=== PATIENT | female | born 1950 | race Caucasian/White ===

== ENCOUNTER → 2017-10-23 12:44 | Outpatient (CLI) | payer MEDICARE, OTHER ==
--- NOTE | ~2017-10-23 | EC ---
PATIENT:IVANNA WATT DATE OF SERVICE: 10/23/17 SEX: F MEDICAL RECORD: [id number] DATE OF : 46 LOCATION:[facility] AGE OF PATIENT: 67 ADMISSION DATE: 10/23/17 REFERRING PHYSICIAN: INTERPRETING PHYSICIAN: ZACARIAS PEREZ MD ECHOCARDIOGRAM REPORT ECHO CHARGES 4 ECHO COMPLETE Date: 10/23 CLINICAL DIAGNOSIS: HTN, MURMUR,DYSPENA,CP,FATIGUE ECHOCARDIOGRAPHIC MEASUREMENTS (adult normal given) AC root (d.<3.7cm) 2.5 cm LV Septum d (<1.2 cm> 0.7 cm Valve Excursion 1.0 cm LV Septum (systole) 1.1 cm Left Atria (s.<4.0cm> 2.8 cm LVPW d(<1.2cm) 0.9 cm RV (d.<2.3cm) 3.5 cm LVPW (sytole) 1.2 cm LV diastole(<5.6CM) 403 cm MV E-F(>70mm/sec) cm LV systole 3.7 cm LVOT Diameter 1.9 cm MV exc.(>10mm) cm Est.ejection fraction (50-75%) % DOPPLER: LVIT cm/sec A 83 cm/sec E 85 cm/sec LA cm/sec RVSP 35 mmHg LVOT 96 cm/sec AOP1/2T m/s Asc. Ao 185 cm/sec RVOT 50 cm/sec RA cm/sec PA cm/sec AV Gradient Peak 13.7 mmHg AV Mean 6.1 mmHg AV Area 1.6 cm MV Gradient Peak 2.9 mmHg MV Mean 1.4 mmHg MV Area cm COMMENTS: Supply Technician: Brazer Induction: Reyna Perez TAPE# PACS Pericardial Effusion N DATE OF SERVICE: INDICATION: Transthoracic echocardiogram. FINDINGS: 1. Left ventricle has hyperdynamic left ventricular function, ejection fraction is 65% to 70%. 2. The left atrium is normal. 3. The aortic valve is normal with trace to mild aortic insufficiency. 4. Mitral valve has mild mitral regurgitation. ECHOCARDIOGRAM REPORT [id number] IVANNA WATT 5. Tricuspid valve has mild tricuspid regurgitation. RVSP of 35 mmHg. 6. The right ventricle and right atrium are mildly dilated. CONCLUSIONS: The patient has evidence of mild pulmonary hypertension, otherwise normal echocardiogram for stated age. TRANSINT:[id number] Voice Confirmation ID: [id number] DOCUMENT ID: [id number] ZACARIAS PEREZ MD at 1127 CC: [id number] DICTATION DATE: 10/24/17 0758 MEDICAL MANAGEMENT SPECIALIST: 10/24/17 0839 DEP CLI 10/23/17 [place] [id number] [place] [id number]
[~2017-10-23 12:44] MED LIST: ASPIRIN81 MG PO; CORDARONE200 MG PO; K-DUR20 MEQ PO; LASIX20 MG PO; LEVOTHYROXINE100 MCG PO; LOPRESSOR25 MG PO; MAGNESIUM OXID250 MG PO
[2017-11-16 11:07] VITALS: BMI 30.2
== END | disposition home or self-care (01) ==
LOC: D.ECHO 12:44
DX: I10 Essential (primary) hypertension (principal); I20.9 Angina pectoris, unspecified; R07.9 Chest pain, unspecified; R53.83 Other fatigue; R06.02 Shortness of breath; R01.1 Cardiac murmur, unspecified; E87.5 Hyperkalemia; Z78.9 Other specified health status

== ENCOUNTER 2017-11-09 07:12 | Outpatient (CLI) | payer MEDICARE, OTHER ==
[~2017-11-09] VITALS: Ht 160 cm; Wt 73.6 kg
--- NOTE | ~2017-11-09 | HEMODYNAMI ---
PATIENT:IVANNA WATT MEDICAL RECORD: [id number] : 46 LOCATION:[facility] ADMISSION DATE: 11/09/17 Generatedon:11/09/201710:01 Patient name: IVANNA WATT Patient #: [id number] SSN: : 1950 Date of study: 11/09/2017 Page: Of Hemodynamic Procedure Report Patient Data Patient Demographics Procedure consent was obtained First Name: IVANNA Gender: Female Last Name: SHUKRI : 1950 Middle Initial: A Age: 67 year(s) Patient #: [id number] Race: Unknown Additional ID: [id number] Contact details [address]: [address] [place] [address] [place] State: [place] City: [place] Zip code: [address] Past Medical History Allergies Allergen Reaction Date Comments Reported Codeine 11/09/2017 Shellfish 11/09/2017 Statins 11/09/2017 Admission Admission Data Admission Date: 11/09/2017 Admission Time: 7:12 Admit Source: Other Lab Results Lab Result Date: 11/09/2017 Lab Result Time: 0:00 Biochemistry Name Units Result Min Max BUN mg/dl 11 --(-*--)-- 7 18 Creatinine mg/dl 0.9 --(-*--)-- 0.6 1.3 CBC Name Units Result Min Max Hemoglobin g/dl 14 --(*---)-- 13.5 17.5 Procedure Procedure Types Cath Procedure Diagnostic Procedure LHC LHC w/Coronaries Procedure Description Procedure Date Procedure Date: 11/09/2017 Procedure Start Time: 9:35 Procedure End Time: 9:58 Procedure Staff Name Function Patricia Garg MD Performing Physician Ronald Rogers RN Nurse Ken Grover RN Cost Consultant Procedure Data Cath Procedure Fluoroscopy Diagnostic fluoroscopy Total fluoroscopy Time: 8.1 time: 8.1 min min Diagnostic fluoroscopy Total fluoroscopy dose: 455 dose: 455 mGy mGy Contrast Material Contrast Material Type Amount (ml) Isovue 300 60 Entry Location Entry Primary Successful Side Size Upsize Upsize Entry Closure Betancur ccessful Closure Location (Fr) 1 (Fr) 2 (Fr) Remarks Device Remarks Femoral Right 6 Fr Mechanical artery Short Compression Diagnostic catheters Device Type Used For End Catheter Placement DIAGNOSTIC [place] 110cm 5 LV Angiography Fr catheter ([id number]) Procedure Complications No complications Procedure Medications Medication Administration Route Dosage 0.9% NaCl I.V. 100 ml/hr Oxygen etCO2 Nasal cannula 2 l/min Heparin Flush Bag added to field 2 bags (1000units/500ml NS) Lidocaine 2% added to field 20 Radial Cocktail added to field 1 syringe (Verapomil 2mg/Nitro 400mcg/Heparin 1500units) Versed I.V. 2 mg Fentanyl I.V. 50 mcg Radial Cocktail I.A. 1 syringe (Verapomil 2mg/Nitro 400mcg/Heparin 1500units) Hemodynamics Rest HGB: 14 (g/dl) Heart Rate: 90 (bpm) Pressure Samples Time Site Value (mmHg) Purpose Heart Use Rate(bpm) 9:53 LV 184/-14,13 EDP 98 Gradients Valve Time Site Site Mean SEP/DFP Peak To Heart Use 1 2 (mmHg) (sec/min) Peak Rate (mmHg) (bpm) Aortic 9:53 LV AO 92 Snapshots Pre Cath Intra NCS Post Cath Vital Signs Time Heart Resp SPO2 etCO2 NIBP (mmHg) Rhythm Pain Sedation Rate (ipm) (%) (mmHg) Status Level (bpm) 9:30:55 84 23 100 30.8 165/85(132) NSR 0 (11) 10(A) , No pain 9:35:43 93 15 99 10.5 151/81(123) NSR 0 (11) 10(A) , No pain 9:40:26 90 18 97 15.8 143/77(108) NSR 0 (11) 10(A) , No pain 9:45:07 97 18 96 15 136/83(113) NSR 0 (11) 9(A) , No pain 9:49:47 94 16 97 14.3 147/90(123) NSR 0 (11) 9(A) , No pain 9:54:32 93 16 98 30.8 144/81(117) NSR 0 (11) 9(A) , No pain Medications Time Medication Route Dose Verified Delivered Reason Notes Effectiveness by by 9:31:45 0.9% NaCl I.V. 100 Ronald Ronald Per ml/hr Sue Rogers physician RN RN 9:31:54 Oxygen etCO2 2 l/min Ronald Ronald Per Nasal Sue Rogers physician cannula RN RN 9:32:05 Heparin Flush added 2 bags Ronald Ronald used for Bag to Lorigan Sue procedure (1000units/500ml field RN RN NS) 9:32:15 Lidocaine 2% added 20ml Ronald Ronald for local to vial Lorigan Lorshiela anesthetic field RN RN 9:33:45 Radial Cocktail added 1 Ronald Ronald used for (Verapomil to syringe Lorigan Debiigan procedure 2mg/Nitro field RN RN 400mcg/Hepari 9:33:57 Versed I.V. 2 mg Ronald Ronald for sedation Sue Rogers RN RN 9:34:06 Fentanyl I.V. 50 mcg Ronald Ronald for sedation Sue Rogers RN RN 9:40:40 Radial Cocktail I.A. 1 Ronald Reed for (Verapomil syringe Sue Garg MD vasodilation 2mg/Nitro RN 400mcg/Hepari Procedure Log Time Note 9:18:30 Admit Source: Other 9:19:03 jess knox rt monitor 9:19:06 Diagnostic Cath status Elective 9:19:08 Ronald Rogers RN sent for patient. Start room use. 9:19:10 Time tracking: Regular hours (M-F 7:00 - 5:00) 9:19:15 Plan of Care:Hemodynamics will remain stable., Cardiac rhythm will remain stable., Comfort level will be maintained., Respiratory function will remain adequate., Patient/ family verbilizes understanding of procedure., Procedure tolerated without complication., Recovers from procedure without complications.. 9:19:20 Patient received from Pre/Post Procedure Room to CCL 1 Alert and oriented. Tansferred to table in Supine position. 9:19:22 Correct patient and procedure confirmed by team. 9:19:22 Warm blankets applied, and tiesha hugger turned on for patient comfort. 9:19:24 ECG and BP/O2 sat monitors applied to patient. 9:19:24 Signed procedure consent form obtained from patient. 9:29:53 Vital chart was started 9:29:53 Baseline sample Acquired. 9:29:58 Rhythm: sinus rhythm 9:30:00 Full Disclosure recording started 9:30:52 H&P Date Dictated: 11/01/2017 Within 30 days and on chart.. 9:30:55 Pre-op teaching completed and patient verbalized understanding. 9:30:55 Pre-procedure instructions explained to patient. 9:30:57 Family in waiting room. 9:30:59 Patient NPO since Midnight. 9:31:07 Patient allergic to Codeine 9:31:14 Patient allergic to Shellfish 9:31:20 Patient allergic to Statins 9:31:22 Is the patient allergic to Iodine/contrast media? Yes. 9:31:26 Was the patient premedicated? Yes 9:31:29 Is patient on blood thinner?Yes 9:31:32 ACC The patient was administered the following blood thiners within the last 24 hours: ACCPlavix 9:31:34 Patient diabetic? No. 9:31:36 ----Pre-sedation anethsthesia assessment.---- 9:31:39 Previous problem with sedation/anesthesia? No ? 9:31:41 Snore? No 9:31:42 Sleep apnea? No 9:31:44 Deviated septum? No 9:31:45 0.9% NaCl 100 ml/hr I.V. was administered by Ronald Rogers RN; Per physician; 9:31:46 Opens mouth fully? Yes 9:31:48 Sticks out tongue? Yes 9:31:51 Airway obstruction? No ? 9:31:53 Dentures? No ? 9:31:54 Oxygen 2 l/min etCO2 Nasal cannula was administered by Ronald Rogers RN; Per physician; 9:31:58 Pre procedure: right dorsailis pedis pulse 1+ Palpable, but thready & weak; easily obliterated 9:32:01 Modified Patricio's test Ulnar > 7 seconds. 9:32:05 Patient pain scale 0/10 ?. 9:32:05 Heparin Flush Bag (1000units/500ml NS) 2 bags added to field was administered by Ronald Rogers RN; used for procedure; 9:32:08 IV patent on arrival in left hand with 0.9% NaCl at 10ml/hr. 9:32:15 Lidocaine 2% 20ml vial added to field was administered by Ronald Rogers RN; for local anesthetic; 9:33:20 Right Radial & Right Groin area was prepped with chlora-prep and draped in sterile fashion 9:33:22 Sharps counted by scrub and verified by R.N. 9:33:22 Alarms reviewed by RAnalia N. 9:33:23 --------ALL STOP TIME OUT------ 9:33:24 Final Timeout: patient, procedure, and site verified with staff and physician. All members of the team are in agreement. 9:33:25 Final Timeout: patient, procedure, and site verified with staff and physician. All members of the team are in agreement. 9:33:30 Right Radial & Right Groin site verified by team. 9:33:34 Physical assessment completed. ASA score P 2 - A patient with mild systemic disease as per Reed Garg MD. 9:33:38 Sedation plan: IV Moderate Sedation Medication:Versed, Fentanyl 9:33:45 Radial Cocktail (Verapomil 2mg/Nitro 400mcg/Heparin 1500units) 1 syringe added to field was administered by Ronald Rogers RN; used for procedure; 9:33:57 Versed 2 mg I.V. was administered by Ronald Rogers RN; for sedation; 9:33:59 Use device set Radial Dx or PCI 9:34:00 ACIST Syringe (65064) opened to sterile field. 9:34:01 Medline Cath Pack ([id number]) opened to sterile field. 9:34:02 Bag Decanter (2002) opened to sterile field. 9:34:03 DIAGNOSTIC WIRE .035 260cm J wire (616724) opened to sterile field. 9:34:04 ACIST Manifold (74477) opened to sterile field. 9:34:04 ACIST Hand Control (72150) opened to sterile field. 9:34:05 Tegaderm 4 x 4 (1626W) opened to sterile field. 9:34:06 MBrace Wrist Support ([id number]) opened to sterile field. 9:34:06 Fentanyl 50 mcg I.V. was administered by Ronald Rogers RN; for sedation; 9:34:13 NEEDLE Cook 21G 4cm Radial (X23225) opened to sterile field. 9:34:20 Procedure started. 9:35:15 Local anesthetic to right radial artery with Lidocaine 2% by Reed Garg MD.INITIAL ACCESS ONLY 9:35:27 A 6 Fr Short sheath was inserted into the Right Femoral artery 9:39:57 Zero performed for pressure channel P1 9:40:10 A DIAGNOSTIC [place] 110cm 5 Fr catheter (303386) was advanced over the wire and used for LV Angiography. 9:40:35 GLIDE WIRE ANGLE 260cm ([id number]) opened to sterile field. 9:40:40 Radial Cocktail (Verapomil 2mg/Nitro 400mcg/Heparin 1500units) 1 syringe I.A. was administered by Reed Garg MD; for vasodilation; 9:41:30 glidewire used for tiger then exchanged for a wholey wire 9:42:02 FIELDER XT 190cm guidewire ([id number]) opened to sterile field. 9:43:17 fielder wire used for tiger 9:44:51 Lab Result : Hemoglobin 14 g/dl 9:44:51 Lab Result : Creatinine 0.9 mg/dl 9:44:51 Lab Result : BUN 11 mg/dl 9:46:25 LCA angiography performed. 9:49:18 RCA angiography performed. 9:53:54 LV gram done using SON 9:53:56 LV angiography performed. 9:53:57 LV hemodynamics recorded. 9:54:00 Catheter removed. 9:54:23 Sheath removed intact; hemostasis achieved with Mechanical Compression to the Right Femoral artery. 9:54:29 TR BAND Standard ([id number]) opened to sterile field. 9:54:37 Procedure ended.(Physican Out) 9:54:52 Fluoroscopy time 08.10 minutes. 9:54:57 Fluoroscopy dose: 455 mGy 9:54:57 Flurop Dose total: 455 9:55:02 Contrast amount:Isovue 300 60ml. 9:55:11 Sharps counted by scrub and verified by R.N. 9:55:32 TR band inflated with 13cc of air. 9:55:45 Post right radial artery:stable 9:55:46 Post Procedure Pulses reassessed and unchanged 9:55:50 Post procedure: right dorsailis pedis pulse 1+ Palpable, but thready & weak; easily obliterated. 9:55:54 Post procedure rhythm: sinus rhythm 9:55:56 Post procedure instruction explained to patient.Patient verbalizes understanding. 9:55:59 Procedure and supply charges have been captured, reviewed, submitted and are correct. 9:56:39 Procedure Complication : No complications 9:57:55 Vital chart was stopped 9:57:56 See physician's report for complete and final results. 9:57:58 Report given to Pre/Post Procedure Room. 9:58:22 Patient transfered to Pre/Post Procedure Room with Stretcher. 9:58:24 Full Disclosure recording stopped 9:58:24 Procedure ended. 9:58:28 End room use (Document Last) Device Usage Item Name Manufacture Quantity Catalog Hospital Part Current Minimal Lot# / Number Charge Number Stock Stock Serial# Code ACIST Acist 1 44948 022760 331720 [id number] 20 Syringe Medical (31868) Systems Inc Medline Cardinal 1 [id number] 615285 86889 032687 5 Cath PISTIS Consult ([id number]) Bag Microtek 1 2001S 816910 22151 722653 5 Decanter Medical Inc. () DIAGNOSTIC St Hari 1 019898 771630 101555 338512 30 WIRE .035 260cm J wire (967128) ACIST Hand Acist 1 43687 768889 566890 365062 5 Control Medical (71948) Systems Inc ACIST Acist 1 05668 211475 146645 723731 5 Manifold Medical (81586) Systems Inc Tegaderm 4 3M 1 1626W 143224 619231 177648 5 x 4 (1626W) MBrace Advanced 1 140-0250-00 134159 42461 837861 5 Wrist Vascular Support Dynamics ([id number]) NEEDLE Cook Cook Medical 1 Q35049 626735 150466 337577 5 21G 4cm Radial (E64569) DIAGNOSTIC Terumo 1 40-1893 751590 840671 428977 5 [place] 110cm 5 Fr catheter (190537) GLIDE WIRE Terumo 1 BY0458 508632 742742 067485 5 ANGLE 260cm (UT0525) FIELDER XT Milner 1 [id number] 051305 14119 089233 5 190cm Vascular guidewire ([id number]) TR BAND Terumo 1 [id number] 131549 364047 800161 40 Standard ([id number]) Signature Audit [place] Stage Time Signature Unsigned Intra-Procedure 11/09/2017 Ken Grover 10:01:44 AM [place] [id number] [place] [address]
--- NOTE | ~2017-11-09 | OP ---
PATIENT NAME: IVANNA WATT MEDICAL RECORD: [id number] :46 LOCATION:D.CAT ADMISSION DATE: SURGEON: ZACARIAS PEREZ MD DATE OF OPERATION: 11/09/2017 PROCEDURES: Left heart catheterization, LV gram, coronary angiogram. MILL BEAM FITTER: Zacarias ePrez MD PROCEDURE IN DETAIL: The patient was brought into the cardiac catheterization lab in a stable condition. The right wrist was sterilely prepped and draped. The patient had a 6-Palauan sheath placed into the right radial artery using modified Seldinger technique in a retrograde fashion. We were then able to take a diagnostic catheter and intubate the left main coronary artery, the right coronary artery and the left ventricular cavity respectively for complete left heart catheterization. FINDINGS: 1. Left main has calcified plaquing. 2. The LAD has a 95% mid stenosis after the takeoff of the dominant diagonal vessel and then in segmental fashion, there is a 90% stenosis. There does not appear to be any collateralization in that area. The diagonal itself has an ostial 80% stenosis. 3. The circumflex is a nondominant vessel, yielding a terminal obtuse marginal branch. The inferior branch is shown to have a 90% stenosis in the proximal vessel. 4. The RCA is a dominant vessel by distribution and has diffuse 60% to 70% stenosis. HEMODYNAMICS: Left ventricular ejection fraction is 75%. End-diastolic pressure is normal. There is no significant mitral regurgitation. There is no gradient across the aortic valve. IMPRESSION: Severe multivessel coronary artery disease in a patient with preserved LV systolic function. RECOMMENDATIONS: To consider coronary artery bypass grafting versus multivessel stenting. TRANSINT:[id number] Voice Confirmation ID: [id number] DOCUMENT ID: [id number] ZACARIAS PEREZ MD at 1144 CC: [id number] DICTATION DATE: 11/09/17 0959 HOUSE OFFICER: 11/09/17 1136 REG [place] [id number] [place] [id number]
[2017-11-09] MEDS ORDERED: LEVOTHYROXINE100 MCG PO (07:57)
[2017-11-09] MEDS ORDERED: ASPIRIN81 MG PO (07:57)
[2017-11-09] MEDS ORDERED: MAGNESIUM OXID250 MG PO (07:58)
[2017-11-09 08:23] VITALS: BP 133/68; Ht 160 cm; Wt 73.6 kg
[2017-11-09 08:38] LABS: BASOPHILS 1.1 % (0-2); EOSINOPHILS 2.8 % (0-7); IMMATURE GRANULOCYTES 0.2 % (0-5); LYMPHOCYTES 32.5 % (15-50); MCH 30.2 pg (26.0-34.0); MCHC 34.1 g/dL (31.0-37.0); MCV 88.4 fL (80.0-100.0); MEAN PLATELET VOLUME 9.3 fL (7.4-10.4); MONOCYTES 8.7 % (2-11); NEUTROPHILS 54.7 % (40-80); PLATELET COUNT 246 10x3/uL (130-400); RBC 4.64 10x6/uL (4.00-5.40); RDW 12.9 % (11.5-14.5); WBC 4.6 10x3/uL (4.8-10.8)
[2017-11-09 08:49] LABS: ANION GAP 9.9 mmol/L (8-16); CALCIUM 8.7 mg/dL (8.5-10.1); CARBON DIOXIDE 30.4 mmol/L (21.0-32.0); CREATININE - SERUM 0.9 mg/dL (0.6-1.3); POTASSIUM - SERUM 4.3 mmol/L (3.5-5.1)
== END 2017-11-09 13:30 | disposition home or self-care (01) ==
LOC: D.CATH 07:12
PROVIDERS: Internal Medicine Cardiovascular Disease
DX: I25.10 Atherosclerotic heart disease of native coronary artery without angina pectoris (principal)

== ENCOUNTER 2017-11-13 13:30 | Inpatient (IN) | payer MEDICARE, OTHER ==
[~2017-11-13] VITALS: Ht 160 cm; Wt 76.1 kg
--- NOTE | ~2017-11-13 | OP ---
PATIENT NAME: IVANNA WATT MEDICAL RECORD: [id number] :46 LOCATION:[facility] ADMISSION DATE:11/15/17 SURGEON: DIONTE ANTUNEZ MD DATE OF OPERATION: 11/15/2017 SURGEON: Dionte Antunez MD DRILL PRESS OPERATOR NUMERICAL CONTROL: Alma Ibarra MD and DANUTA Cerda OPERATION PERFORMED: Coronary artery bypass graft times 4 (left internal mammary artery to LAD, reverse saphenous vein graft from aorta to first diagonal, aorta to obtuse marginal, distal branch, and aorta to right coronary artery). PREOPERATIVE DIAGNOSES: Coronary artery disease with unstable angina. POSTOPERATIVE DIAGNOSES: Coronary artery disease with unstable angina. ANESTHESIA: General endotracheal anesthesia. ESTIMATED BLOOD LOSS: Total cardiopulmonary bypass with Cell Saver re-transfusion, 1 packed red blood cell, 1 platelet. COMPLICATIONS: None. SPECIMENS: None. CONDITION: Stable. DISPOSITION: CV ICU. OPERATIVE FINDINGS: 1. Transesophageal echocardiography revealed normal contractility. No valvular stenosis or incompetence. 2. Greater saphenous vein at the knee was thin and this portion was used for the right coronary bypass graft, in the mid thigh was a dual system with the more superficial segment being varicose but enough vein for use of the diagonal and it was a larger caliber piece of vein. The best piece was used for the obtuse marginal graft. 3. Good quality internal mammary artery to LAD was a 2.0-mm vessel. 4. First diagonal 1.5 mm vessel with severe disease. 5. Obtuse marginal, distal branch 1.5 mm vessel. 6. The posterior descending artery was small, about 1.25 mm of the distal anastomosis was in the right coronary artery, which was a 1.5 mm vessel with severe disease. 7. Separation from cardiopulmonary bypass without vasopressors. OPERATIVE INDICATION: Coronary artery disease and unstable angina. DESCRIPTION OF PROCEDURE: The patient was brought to the operating suite. General anesthesia was obtained, the patient was prepped and draped. Greater saphenous vein was harvested in the right leg using bridging incisions. Side branches were clipped. The vein was ligated proximally and distally and removed. It was made hemostatic. Later the leg was closed in 2 layers including drains were placed. OPERATIVE REPORT [id number] IVANNA WATT A median sternotomy incision was made. Subcutaneous tissue was divided by electrocautery. The sternum was divided with a saw. The left hemisternum was elevated. Left pleural cavity was entered. Left internal mammary vein was taken as a pedicle graft. Sternal retractor was placed. Pericardium was opened. Heparin was given. The aortic cannula was placed. Dual stage venous cannula was placed. Internal mammary was clipped distally and made ready for anastomosis. The patient was placed on cardiopulmonary bypass after activating clotting time was appropriately elevated. Sites for distal anastomoses were selected. Antegrade cardioplegia vent needle was placed. The patient was cooled. Crossclamp was placed. Cardioplegia was given antegrade and this was repeated at 15-minute intervals including down the completed vein grafts. Distal anastomoses were performed in standard technique. Proximal anastomosis with a single cross-clamp technique. The aortic root de-aired with a clamp off and anastomoses tied down. The grafts were de-aired. The patient resumed a spontaneous rhythm, fully rewarmed, weaned from cardiopulmonary bypass and was stable. The patient was decannulated. Aortic cannulation site was oversewn with a Prolene suture with pledgets. Protamine was given. A thorough irrigation was undertaken. All grafts lay appropriately and were hemostatic. Drains were placed in the mediastinum. Single ventricular pacing wires were placed. Pericardial fat was loosely reapproximated. Left chest was evacuated and irrigated. The internal mammary harvest site was inspected and there was no bleeding. The sternum was closed with wires. Fascia was closed. Subcutaneous tissue was closed. Skin was closed. Dermabond was placed. The needle and sponge counts were reported as correct and the patient was taken to the ICU in stable condition. TRANSINT:[id number] Voice Confirmation ID: [id number] DOCUMENT ID: [id number] DIONTE ANTUNEZ MD at 0747 CC: ZACARIAS PEREZ MD [id number] DICTATION DATE: 11/15/17 1316 HAND BOX COVERER: 11/15/17 1337 ADM IN [place] [id number] [place] [id number]
--- NOTE | ~2017-11-13 | TEE ---
PATIENT:IVANNA WATT MEDICAL RECORD: [id number] LOCATION:[place] [id number] AGE OF PATIENT: 67 ADMISSION DATE: 11/15/17 SEX: F REFERRING PHYSICIAN: INTERPRETING PHYSICIAN: ZACARIAS PEREZ MD TRANSESOPHAGEAL ECHOCARDIOGRAM Date: 11/15/17 JOSIE CHARGE Y INDICATIONS: CABG PREMEDICATIONS: PATIENT'S RESPONSE PROCEDURE DOPPLER MEASUREMENTS: LVIT LA PA RA LVOT RVOT Asc. Ao AV Gradient Peak AV Mean AV Area MV Gradient Peak MV Mean MV Area INTERPRETATION: LVD: 3.3 LVS: 2.1 Doppler: 2-D: COLOR FLOW DOPPLER NORMAL SALINE STUDY: MISCELLANOUS: DIAGNOSIS: PLAN: Academic Hospitalist:4 Dr. Perez Billing Representative: Garfield POWELL COMMENTS: DATE OF SERVICE: 11/17/2017 PROCEDURE: Intraoperative transesophageal echocardiogram. FINDINGS: 1. The left atrium appears to be normal size and function. 2. The mitral valve appears to be normal. 3. The left ventricular function appears to be normal. 4. The aortic valve is grossly normal. There is no regional wall motion TRANSESOPHAGEAL ECHOCARDIOGRAM REPORT [id number] IVANNA WATT abnormalities. 5. Postoperative JOSIE reveals hyperdynamic LV systolic function, ejection fraction of 85% to 90% with no demonstrable regional wall motion abnormalities. IMPRESSION: This is an intraoperative transesophageal echocardiogram demonstrating appropriate wall motion post CABG. TRANSINT:[id number] Voice Confirmation ID: [id number] DOCUMENT ID: [id number] at 1458 CC: [id number] DICTATION DATE: 11/17/17 08 BATCH PLANT OPERATOR: 11/17/17 1140 DIS IN 11/20/17 [place] [id number] [place] [id number]
[~2017-11-13 13:30] MED LIST changes: -CORDARONE200 MG PO; -K-DUR20 MEQ PO; -LASIX20 MG PO; -LOPRESSOR25 MG PO
[2017-11-13 15:19] LABS: BASOPHILS 0.5 % (0-2); EOSINOPHILS 1.2 % (0-7); HEMATOCRIT 42.6 % (36.0-48.0); HEMOGLOBIN 14.9 g/dL (12-16); IMMATURE GRANULOCYTES 0.2 % (0-5); LYMPHOCYTES 39.8 % (15-50); MCH 30.4 pg (26.0-34.0); MCV 86.9 fL (80.0-100.0); MEAN PLATELET VOLUME 9.4 fL (7.4-10.4); MONOCYTES 5.3 % (2-11); PLATELET COUNT 277 10x3/uL (130-400); RDW 12.8 % (11.5-14.5); WBC 5.8 10x3/uL (4.8-10.8)
[2017-11-13 15:23] LABS: APPEARANCE CLEAR (CLEAR); BILIRUBIN NEGATIVE (NEGATIVE); COLOR STRAW (YELLOW); GLUCOSE NEGATIVE (NEGATIVE); KETONE NEGATIVE (NEGATIVE); NITRITE NEGATIVE (NEGATIVE); PROTEIN NEGATIVE (NEGATIVE); SPECIFIC GRAVITY 1.005 (1.005-1.020); UROBILINOGEN NORMAL (NORMAL)
[2017-11-13 15:24] LABS: BACTERIA FEW /hpf (NONE SEEN); EPITHELIAL CELLS 0-5 /hpf (0-5); WHITE CELLS - URINE 0-5 /hpf (0-5)
[2017-11-13 15:36] LABS: APTT 26.3 SECONDS (22.8-39.4); INR 0.93 (0.85-1.17); PROTIME 12.1 SECONDS (11.6-15.0)
[2017-11-13 16:03] LABS: ALBUMIN 3.8 g/dL (3.4-5.0); ALKALINE PHOSPHATASE 88 U/L (46-116); ALT (SGPT) 26 U/L (10-68); BILIRUBIN - TOTAL 0.47 mg/dL (0.2-1.3); CALC OSMOLALITY 278 mosm/kg (275-300); CALCIUM 9.2 mg/dL (8.5-10.1); CARBON DIOXIDE 29.1 mmol/L (21.0-32.0); CHLORIDE - SERUM 103 mmol/L (98-107); CHOLESTEROL, TOTAL 274 mg/dL (0-200); CREATININE - SERUM 0.8 mg/dL (0.6-1.3); GLUCOSE 93 mg/dL (74-106); PHOSPHOROUS 3.8 mg/dL (2.5-4.9); POTASSIUM - SERUM 3.8 mmol/L (3.5-5.1); PROTEIN - SERUM 7.7 g/dL (6.4-8.2); SODIUM 140 mmol/L (136-145); T4 THYROXIN - FREE 1.41 ng/dL (0.76-1.46); THYROID STIMULATING HORMONE 1.14 uIU/mL (0.36-3.74); UREA NITROGEN 13 mg/dL (7-18); URIC ACID 4.7 mg/dL (2.6-7.2); eGFR NON AFRICAN AMERICAN 75 mL/min (90-120)
[2017-11-15] VITALS (29 sets, daily range): BP systolic 105–175; BP diastolic 57–85; BMI 28.7
[2017-11-16] VITALS (24 sets, daily range): BP systolic 90–138; BP diastolic 47–66; Ht 160 cm; Wt 76.1 kg
[2017-11-16 06:34] LABS: HEMATOCRIT 34.2 % (36.0-48.0); HEMOGLOBIN 11.9 g/dL (12-16); MCH 30.5 pg (26.0-34.0); MCHC 34.8 g/dL (31.0-37.0); MCV 87.7 fL (80.0-100.0); MEAN PLATELET VOLUME 9.9 fL (7.4-10.4); RBC 3.9 10x6/uL (4.00-5.40); RDW 13.4 % (11.5-14.5); WBC 14.4 10x3/uL (4.8-10.8)
[2017-11-16 08:00] LABS: ALBUMIN 2.5 g/dL (3.4-5.0); ANION GAP 11.8 mmol/L (8-16); BILIRUBIN - TOTAL 0.48 mg/dL (0.2-1.3); CALCIUM 7.3 mg/dL (8.5-10.1); CARBON DIOXIDE 24.9 mmol/L (21.0-32.0); POTASSIUM - SERUM 3.7 mmol/L (3.5-5.1)
[2017-11-17] VITALS (24 sets, daily range): BP systolic 96–123; BP diastolic 50–76
[2017-11-17 06:19] LABS: HEMATOCRIT 30.1 % (36.0-48.0); HEMOGLOBIN 10.2 g/dL (12-16); MCH 30.1 pg (26.0-34.0); MCHC 33.9 g/dL (31.0-37.0); MCV 88.8 fL (80.0-100.0); MEAN PLATELET VOLUME 9.6 fL (7.4-10.4); RBC 3.39 10x6/uL (4.00-5.40); RDW 13.6 % (11.5-14.5)
[2017-11-17 06:49] LABS: ALBUMIN 2.2 g/dL (3.4-5.0); ALKALINE PHOSPHATASE 52 U/L (46-116); BILIRUBIN - TOTAL 0.43 mg/dL (0.2-1.3); CALCIUM 7.3 mg/dL (8.5-10.1); CARBON DIOXIDE 28.2 mmol/L (21.0-32.0); CHLORIDE - SERUM 104 mmol/L (98-107); CREATININE - SERUM 0.8 mg/dL (0.6-1.3); POTASSIUM - SERUM 3.8 mmol/L (3.5-5.1); PROTEIN - SERUM 4.9 g/dL (6.4-8.2); SODIUM 132 mmol/L (136-145); eGFR NON AFRICAN AMERICAN 75 mL/min (90-120)
[2017-11-17 06:50] LABS: GLUCOSE 118 mg/dL (74-106)
[2017-11-17 06:51] LABS: ALT (SGPT) 18 U/L (10-68); CALC OSMOLALITY 263 mosm/kg (275-300); UREA NITROGEN 7 mg/dL (7-18)
[2017-11-18] VITALS (23 sets, daily range): BP systolic 101–143; BP diastolic 54–73
[2017-11-18 06:33] LABS: HEMOGLOBIN 9.5 g/dL (12-16); MCH 30.2 pg (26.0-34.0); MCHC 33.9 g/dL (31.0-37.0); MCV 88.9 fL (80.0-100.0); MEAN PLATELET VOLUME 9.9 fL (7.4-10.4); RBC 3.15 10x6/uL (4.00-5.40); RDW 13.8 % (11.5-14.5); WBC 8.6 10x3/uL (4.8-10.8)
[2017-11-18 07:02] LABS: ALBUMIN 2.1 g/dL (3.4-5.0); ALKALINE PHOSPHATASE 61 U/L (46-116); ALT (SGPT) 16 U/L (10-68); BILIRUBIN - TOTAL 0.52 mg/dL (0.2-1.3); CALC OSMOLALITY 267 mosm/kg (275-300); CALCIUM 7.8 mg/dL (8.5-10.1); CARBON DIOXIDE 27.3 mmol/L (21.0-32.0); CHLORIDE - SERUM 104 mmol/L (98-107); CREATININE - SERUM 0.7 mg/dL (0.6-1.3); GLUCOSE 106 mg/dL (74-106); POTASSIUM - SERUM 3.9 mmol/L (3.5-5.1); PROTEIN - SERUM 5.3 g/dL (6.4-8.2); SODIUM 135 mmol/L (136-145); UREA NITROGEN 6 mg/dL (7-18); eGFR NON AFRICAN AMERICAN 88 mL/min (90-120)
[2017-11-19] VITALS (22 sets, daily range): BP systolic 103–147; BP diastolic 52–82
[2017-11-19 07:05] LABS: HEMOGLOBIN 9.9 g/dL (12-16); MCH 30.4 pg (26.0-34.0); MCHC 34.1 g/dL (31.0-37.0); MEAN PLATELET VOLUME 9.4 fL (7.4-10.4); RBC 3.26 10x6/uL (4.00-5.40); RDW 13.9 % (11.5-14.5); WBC 7.7 10x3/uL (4.8-10.8)
[2017-11-19 07:33] LABS: ALBUMIN 2.2 g/dL (3.4-5.0); ALKALINE PHOSPHATASE 63 U/L (46-116); ALT (SGPT) 18 U/L (10-68); CALC OSMOLALITY 270 mosm/kg (275-300); CALCIUM 7.8 mg/dL (8.5-10.1); CARBON DIOXIDE 24.5 mmol/L (21.0-32.0); CHLORIDE - SERUM 104 mmol/L (98-107); CREATININE - SERUM 0.7 mg/dL (0.6-1.3); GLUCOSE 109 mg/dL (74-106); POTASSIUM - SERUM 3.9 mmol/L (3.5-5.1); PROTEIN - SERUM 5.7 g/dL (6.4-8.2); SODIUM 136 mmol/L (136-145); UREA NITROGEN 7 mg/dL (7-18); eGFR NON AFRICAN AMERICAN 88 mL/min (90-120)
[2017-11-20] VITALS (14 sets, daily range): BP systolic 113–136; BP diastolic 60–80
[2017-11-20 04:47] LABS: HEMATOCRIT 30.6 % (36.0-48.0); HEMOGLOBIN 10.3 g/dL (12-16); MCHC 33.7 g/dL (31.0-37.0); MCV 89.2 fL (80.0-100.0); MEAN PLATELET VOLUME 9.5 fL (7.4-10.4); RBC 3.43 10x6/uL (4.00-5.40); RDW 13.9 % (11.5-14.5); WBC 7.1 10x3/uL (4.8-10.8)
[2017-11-20 05:08] LABS: ALBUMIN 2.3 g/dL (3.4-5.0); ALKALINE PHOSPHATASE 64 U/L (46-116); BILIRUBIN - TOTAL 0.49 mg/dL (0.2-1.3); CALC OSMOLALITY 276 mosm/kg (275-300); CALCIUM 8.4 mg/dL (8.5-10.1); CARBON DIOXIDE 26.2 mmol/L (21.0-32.0); CHLORIDE - SERUM 105 mmol/L (98-107); CREATININE - SERUM 0.8 mg/dL (0.6-1.3); GLUCOSE 108 mg/dL (74-106); POTASSIUM - SERUM 4.3 mmol/L (3.5-5.1); PROTEIN - SERUM 6.2 g/dL (6.4-8.2); SODIUM 139 mmol/L (136-145); UREA NITROGEN 7 mg/dL (7-18); eGFR NON AFRICAN AMERICAN 75 mL/min (90-120)
[2017-11-20 05:13] LABS: ALT (SGPT) 28 U/L (10-68)
[2017-11-20] MEDS ORDERED: CORDARONE200 MG PO (17:04)
[2017-11-20] MEDS ORDERED: LOPRESSOR25 MG PO (17:05)
[2017-11-20] MEDS ORDERED: LASIX20 MG PO (17:06)
[2017-11-20] MEDS ORDERED: K-DUR20 MEQ PO (17:07)
== END 2017-11-20 18:28 | disposition home or self-care (01) | DRG 236 ==
LOC: D.CVICU 11-15 05:00 → D.SDCHOLD 11-15 05:00 → D.CVICU 11-15 09:24 → D.SDCHOLD 11-15 14:00 → D.CVICU 11-20 18:28
PROVIDERS: Thoracic Surgery (Cardiothoracic Vascular Surgery)
PROC: 021209W Bypass Coronary Artery, Three Arteries from Aorta with Autologous Venous Tissue, Open Approach (ICD-10-PCS; 2017-11-15)
PROC: 06BP0ZZ Excision of Right Saphenous Vein, Open Approach (ICD-10-PCS; 2017-11-15)
PROC: 5A1221Z Performance of Cardiac Output, Continuous (ICD-10-PCS; 2017-11-15)
PROC: B24BZZ4 Ultrasonography of Heart with Aorta, Transesophageal (ICD-10-PCS; 2017-11-15)
PROC: 02100Z9 Bypass Coronary Artery, One Artery from Left Internal Mammary, Open Approach (ICD-10-PCS; principal; 2017-11-15 07:30)
DX: I25.110 Atherosclerotic heart disease of native coronary artery with unstable angina pectoris (principal); E87.6 Hypokalemia; K21.9 Gastro-esophageal reflux disease without esophagitis; E03.9 Hypothyroidism, unspecified

== ENCOUNTER → 2017-12-27 13:28 | Outpatient (CLI) | payer MEDICARE, OTHER ==
[2017-11-16 11:07] VITALS: BMI 30.2
[~2017-12-27 13:28] MED LIST changes: +CORDARONE200 MG PO; +K-DUR20 MEQ PO; +LASIX20 MG PO; +LOPRESSOR25 MG PO
[2017-12-27 13:48] LABS: HEMATOCRIT 33.8 % (36.0-48.0); MCH 28.1 pg (26.0-34.0); MCHC 32.5 g/dL (31.0-37.0); MCV 86.4 fL (80.0-100.0); MEAN PLATELET VOLUME 8.8 fL (7.4-10.4); RBC 3.91 10x6/uL (4.00-5.40); RDW 12.8 % (11.5-14.5); WBC 5.3 10x3/uL (4.8-10.8)
[2017-12-27 14:11] LABS: ALBUMIN 3.3 g/dL (3.4-5.0); ANION GAP 11.1 mmol/L (8-16); BILIRUBIN - TOTAL 0.16 mg/dL (0.2-1.3); CALCIUM 8.8 mg/dL (8.5-10.1); CARBON DIOXIDE 27.8 mmol/L (21.0-32.0); CREATININE - SERUM 1.1 mg/dL (0.6-1.3); POTASSIUM - SERUM 3.9 mmol/L (3.5-5.1); PROTEIN - SERUM 6.7 g/dL (6.4-8.2)
== END | disposition home or self-care (01) ==
LOC: D.RAD 09:00
PROVIDERS: Thoracic Surgery (Cardiothoracic Vascular Surgery)
DX: D64.9 Anemia, unspecified (principal); J91.8 Pleural effusion in other conditions classified elsewhere

== ENCOUNTER 2018-02-18 11:24 | Emergency (ER) | payer MEDICARE, OTHER ==
[~2018-02-18] VITALS: Ht 160 cm; Wt 64.5 kg
[2018-02-18 11:39] VITALS: Ht 160 cm; Wt 64.5 kg
[2018-02-18] MEDS ORDERED: VISTARIL25 MG PO (14:20)
[2018-02-18] MEDS ORDERED: PREDNISONE10 MG PO (14:20)
[2018-02-18] MEDS ORDERED: FAMOTIDINE10 MG PO (14:20)
[2018-02-18 14:35] VITALS: BP 150/84
== END 2018-02-18 14:37 | disposition home or self-care (01) ==
LOC: D.ER 11:24
DX: T37.0X5A Adverse effect of sulfonamides, initial encounter (principal); Y92.019 Unspecified place in single-family (private) house as the place of occurrence of the external cause; L50.0 Allergic urticaria; L50.9 Urticaria, unspecified; I25.10 Atherosclerotic heart disease of native coronary artery without angina pectoris; K21.9 Gastro-esophageal reflux disease without esophagitis

== ENCOUNTER → 2018-11-30 11:25 | Outpatient (CLI) | payer MEDICARE, OTHER ==
[2018-02-18 11:39] VITALS: BMI 25.2
[~2018-11-30 11:25] MED LIST changes: +FAMOTIDINE10 MG PO; +PREDNISONE10 MG PO; +VISTARIL25 MG PO
--- NOTE | 2018-12-04 14:28 | EC ---
PATIENT:IVANNA WATT DATE OF SERVICE: 11/30/18 SEX: F MEDICAL RECORD: [id number] DATE OF : 46 LOCATION:D.US AGE OF PATIENT: 68 ADMISSION DATE: 11/30/18 REFERRING PHYSICIAN: INTERPRETING PHYSICIAN: ESTER HANNA MD ECHOCARDIOGRAM REPORT ECHO CHARGES 4 ECHO COMPLETE Date: 11/30/18 CLINICAL DIAGNOSIS: MURMUR HX CAD/CABG ECHOCARDIOGRAPHIC MEASUREMENTS (adult normal given) AC root (d.<3.7cm) 3.1 cm LV Septum d (<1.2 cm> 1.2 cm Valve Excursion 1.5 cm LV Septum (systole) 14.4 cm Left Atria (s.<4.0cm> 2.9 cm LVPW d(<1.2cm) 1.3 cm RV (d.<2.3cm) 3.6 cm LVPW (sytole) 1.4 cm LV diastole(<5.6CM) 3.9 cm MV E-F(>70mm/sec) cm LV systole 2.4 cm LVOT Diameter 1.8 cm MV exc.(>10mm) 0.90 cm Est.ejection fraction (50-75%) % DOPPLER: LVIT cm/sec A 81.0 cm/sec E 57.0 cm/sec LA cm/sec RVSP 32 mmHg LVOT 102 cm/sec AOP1/2T m/s Asc. Ao 101 cm/sec RVOT 60 cm/sec RA cm/sec PA 93 cm/sec AV Gradient Peak 4.09 mmHg AV Mean 2.03 mmHg AV Area 2.9 cm MV Gradient Peak 2.61 mmHg MV Mean 0.90 mmHg MV Area cm COMMENTS: Cork Molder: Herve JACK Real Estate Sales Agent: 3 Dr. Ramirez TAPE# PAC Pericardial Effusion N DATE OF SERVICE: 11/30/2018 Adequate 2D, color flow imaging, spectral Doppler, and M-Mode Borderline LVH. LV internal dimension are normal. Wall motion is normal. EF is greater than or equal to 55%. Aortic valve is tricuspid. There is no evidence of stenosis by Doppler interrogation. There is mild AI by color-flow imaging. Left atrium is normal. Mitral valve shows no prolapse. Trace MR. Right-sided chambers are grossly normal. Mild TR. ECHOCARDIOGRAM REPORT [id number] IVANNA WATT TRANSINT:[id number] Voice Confirmation ID: [id number] DOCUMENT ID: [id number] ESTER HANNA MD at 1428 CC: [id number] DICTATION DATE: 12/04/18 1315 COIL WINDER HAND: 12/04/18 1329 DEP CLI 11/30/18 [place] [id number]
== END | disposition home or self-care (01) ==
LOC: D.US 11:25 → D.HCCARDIO 13:30
PROVIDERS: ATTEND Internal Medicine Interventional Cardiology
DX: R09.89 Other specified symptoms and signs involving the circulatory and respiratory systems (principal)

== ENCOUNTER 2019-12-27 06:40 | Day surgery (SDC) | payer MEDICARE, OTHER ==
[2019-12-25 14:46] LABS: HEMATOCRIT 40.7 % (36.0-48.0); HEMOGLOBIN 13.3 g/dL (12-16); MCH 27.8 pg (26.0-34.0); MCHC 32.7 g/dL (31.0-37.0); MEAN PLATELET VOLUME 9.2 fL (7.4-10.4); RBC 4.79 10x6/uL (4.00-5.40); RDW 14.9 % (11.5-14.5); WBC 5.4 10x3/uL (4.8-10.8)
[2019-12-25 14:59] LABS: CALC OSMOLALITY 277 mosm/kg (275-300); CALCIUM 9.8 mg/dL (8.5-10.1); CARBON DIOXIDE 30.1 mmol/L (21.0-32.0); CHLORIDE - SERUM 104 mmol/L (98-107); CREATININE - SERUM 0.8 mg/dL (0.6-1.3); GLUCOSE 92 mg/dL (74-106); POTASSIUM - SERUM 3.5 mmol/L (3.5-5.1); SODIUM 138 mmol/L (136-145); UREA NITROGEN 17 mg/dL (7-18); eGFR NON AFRICAN AMERICAN 75 mL/min (90-120)
[~2019-12-27] VITALS: Ht 160 cm; Wt 65.8 kg
[~2019-12-27 06:40] MED LIST changes: +VALIUM5 MG PO; +ZETIA10 MG PO
[2019-12-27 07:32] VITALS: BP 150/94; Ht 160 cm; Wt 65.8 kg
--- NOTE | 2019-12-27 13:45 | NUR ---
IV D/C'D WITH CANNULA INTACT, PRESSURE HELD AND DRSG PLACED. DISCHARGE INSTRUCTIONS GIVEN AND PT AAND DAUGHTER VERBALIZED AN UNDERSTANDING. OPERATIVE SITE IS WITH CDI DRSG, SLING AND WAIST SWATH IN PLACE. DISCHARGED IN STABLE CONDITION AND W/O C/O
--- NOTE | 2019-12-28 09:02 | OP ---
PATIENT NAME: IVANNA WATT MEDICAL RECORD: [id number] :46 LOCATION:[facility] ADMISSION DATE: SURGEON: KVNG COATS DO DATE OF OPERATION: 12/27/2019 PROCEDURE PERFORMED: Right shoulder arthroscopy with subacromial decompression, distal clavicle excision, labral debridement, biceps tenodesis, and rotator cuff repair with Regeneten. PREOPERATIVE DIAGNOSIS: Right shoulder rotator cuff tear, full-thickness flap tear, subacromial impingement, and AC joint arthritis. POSTOPERATIVE DIAGNOSIS: Right shoulder rotator cuff tear, full-thickness flap tear, subacromial impingement, and AC joint arthritis. INDICATIONS: Ms. Watt is a 69-year-old female who has had right shoulder pain for quite some time. She has tried all manner of nonoperative treatment to no avail and is tired of dealing with the pain and the weakness and wanted something surgically. I informed her of the risks including infection, retear of the rotator cuff tendon, arthrofibrosis, continued pain, loss of motion, blood clots, and even and she signed the consent. SURGEON: Kvng Coats DO DESCRIPTION OF PROCEDURE: The patient was given a block by anesthesia in the preoperative area, given 900 mg of clindamycin, taken to the operative suite, laid in the left lateral decubitus position with the right shoulder up. She was then sedated and LMA was placed. The right shoulder was prepped and draped in sterile fashion. A time-out was performed and everyone was in agreement with the correct site, side, patient, and procedure. I then inflated the shoulder joint through a posterior portal with an 18-gauge spinal needle with 40 mL normal saline and established a posterior portal with an 11-blade scalpel. Trocar entered into the joint. I got a gush of water back after taking the trocar out, indicating I was in the joint. I entered the camera into the joint and established an anterior portal with an 18-gauge spinal needle and 11-blade scalpel and inspected the shoulder. The subscapularis tendon was in good repair. There was a large SLAP tear seen and also the supraspinatus, infraspinatus had very few remaining fibers on the articular side attached to the footprint. I then brought in a burner and did a biceps tenotomy and labral debridement. I inspected the inferior gutter. No loose body seen in it. I then went to subacromial space, established a lateral portal with an 18-gauge spinal needle and 11-blade scalpel with trocar entered in and then a burner and a shaver, cleaned off the distal lateral acromion as well as the AC joint. I removed the distal clavicle, opening up the AC joint approximately 7 mm. I then took a spur off the acromion and smoothed that out and noted the tear on the bursal side. I then extended the lateral incision with a 15 blade scalpel, made blunt dissection down with [employer], and exposed the tear. I then put in 1 medial row anchor through the cuff and brought it over to 2 lateral row anchors and then put a large Regeneten implant on top, stapled into place medially and laterally. I then addressed the anterior humerus for the biceps tenodesis. I made a small incision and carefully dissected out the long head of the biceps tendon and put a unicortical 2.9 JuggerLoc anchor in with a loop on it and cinched it down over the long head of the biceps tendon. I then cut the loop and used excess suture to go back to the tendon twice, tied that down, and cut the excess tendon and suture. I then irrigated the sites and they were closed OPERATIVE REPORT [id number] IVANNA WATT by Haider Gar, certified salesperson surgical appliances. He closed the open rotator cuff and biceps tenodesis sites with 2-0 Vicryl in inverted interrupted fashion, 4-0 Monocryl ran on the skin, and then 4-0 Monocryl in inverted interrupted fashion on the anterior and posterior portals, covered all the incisions with Dermabond, Telfa, and Tegaderm. She was then awakened, put in a sling, and taken to recovery in stable condition. BLOOD LOSS: Minimal. COMPLICATIONS: None. NTS:[id number] Voice Confirmation ID: [id number] DOCUMENT ID: [id number] KVNG COATS DO at 0902 CC: [id number] DICTATION DATE: 12/27/19 1204 WARP CHANGER: 12/28/19 0002 [facility] 12/27/19 [id number] [place] [address]
== END 2019-12-27 13:20 | disposition home or self-care (01) ==
LOC: D.OPS 06:40 → D.PAN 11:30 → D.OPS 13:20
PROVIDERS: Anesthesiology; ATTEND Orthopaedic Surgery
DX: M75.101 Unspecified rotator cuff tear or rupture of right shoulder, not specified as traumatic (principal); M75.41 Impingement syndrome of right shoulder; M13.811 Other specified arthritis, right shoulder; I25.10 Atherosclerotic heart disease of native coronary artery without angina pectoris; K21.9 Gastro-esophageal reflux disease without esophagitis

== ENCOUNTER → 2020-01-09 08:54 | Outpatient (CLI) | payer MEDICARE, OTHER ==
[2019-12-27 07:32] VITALS: BMI 25.7
--- NOTE | 2020-01-10 08:55 | EC ---
PATIENT:IVANNA WATT DATE OF SERVICE: 01/09/20 SEX: F MEDICAL RECORD: [id number] DATE OF : 46 LOCATION:[facility] AGE OF PATIENT: 69 ADMISSION DATE: 01/09/20 REFERRING PHYSICIAN: INTERPRETING PHYSICIAN: ESTER HANNA MD ECHOCARDIOGRAM REPORT ECHO CHARGES 4 ECHO COMPLETE Date: 01/09/20 CLINICAL DIAGNOSIS: HEART MURMUR/CAD/MITRAL/TRICUS PID REGURG ECHOCARDIOGRAPHIC MEASUREMENTS (adult normal given) AC root (d.<3.7cm) 3.3 cm LV Septum d (<1.2 cm> 1.2 cm Valve Excursion 1.5 cm LV Septum (systole) 1.4 cm Left Atria (s.<4.0cm> 3.1 cm LVPW d(<1.2cm) 1.1 cm RV (d.<2.3cm) 3.3 cm LVPW (sytole) 1.5 cm LV diastole(<5.6CM) 3.5 cm MV E-F(>70mm/sec) cm LV systole 2.1 cm LVOT Diameter 2.0 cm MV exc.(>10mm) 0.90 cm Est.ejection fraction (50-75%) % DOPPLER: LVIT cm/sec A 83.0 cm/sec E 63.0 cm/sec LA cm/sec RVSP 29 mmHg LVOT 91 cm/sec AOP1/2T m/s Asc. Ao 110 cm/sec RVOT 60 cm/sec RA cm/sec PA 93 cm/sec AV Gradient Peak 4.88 mmHg AV Mean 2.75 mmHg AV Area 2.6 cm MV Gradient Peak 2.75 mmHg MV Mean 1.06 mmHg MV Area cm COMMENTS: Tinner Automatic: 2 MALU JACK Client Resolution Specialist: 3 Dr. Ramirez TAPE# PACS Pericardial Effusion N DATE OF SERVICE: Adequate 2D, color flow imaging, spectral Doppler, and M-mode. No LVH. LV internal dimension is normal. Wall motion is normal. EF is greater than or equal to 55%. Aortic valve is tricuspid. No evidence of stenosis by Doppler interrogation. Trivial AI by color flow imaging. Left atrium normal at 3.1 cm. Mitral valve shows no prolapse. Trivial MR. Right-sided chambers are grossly normal. Trivial TR. ECHOCARDIOGRAM REPORT [id number] IVANNA WATT NTS:[id number] Voice Confirmation ID: [id number] DOCUMENT ID: [id number] ESTER HANNA MD at 0855 CC: [id number] DICTATION DATE: 01/09/20 1352 SUSHI CHEF: 01/09/205 DEP CLI 01/09/20 [place] [id number] [place] [id number]
== END | disposition home or self-care (01) ==
LOC: D.HCCECHO 08:54
PROVIDERS: ATTEND Internal Medicine Interventional Cardiology
DX: R01.1 Cardiac murmur, unspecified (principal)